=== PATIENT | male | born 1990 | race Caucasian/White ===

== ENCOUNTER 2019-11-05 10:16 | Emergency (ER) | payer OTHER, SELFPAY ==
[2019-11-05 10:21] VITALS: BMI 26.6
--- NOTE | 2019-11-05 10:22 | DI.RAD.S_ITS ---
PROCEDURE: XR CHEST 2V INDICATIONS: shortness of breath TECHNIQUE: 2 views of the chest were acquired. COMPARISON: None. FINDINGS: Surgical changes and devices: None. Lungs and pleura: Lungs are clear. No pleural effusions or pneumothorax. Mediastinum: Mediastinal contours are normal. Heart size is normal. Bones and chest wall: No suspicious bony abnormalities. Soft tissues appear unremarkable. IMPRESSION: No acute cardiopulmonary pathology. Dictated by: Matias Whipple M.D. on 11/05/2019 at 11:09 Approved by: Matias Whipple M.D. on 11/05/2019 at 11:11
[2019-11-05 10:49] LABS: Add Manual Diff / Slide Review NO; Basophils Absolute Auto 0 /uL (0-100); Basophils Percent Auto 0.6 % (0-2); Eosinophils Absolute Auto 0 /uL (0-450); Eosinophils Percent Auto 0.3 % (2-4); Hematocrit 47.3 % (41-53); Hemoglobin 16.7 g/dL (13.5-17.5); Lymphocytes Absolute Auto 1600 /uL (1100-4500); Lymphocytes Percent Auto 31.7 % (25-40); Mean Corpuscular HGB Conc 35.4 % (30-36); Mean Corpuscular Hemoglobin 30.4 PG (26-34); Monocytes Absolute Auto 500 /uL (0-900); Monocytes Percent Auto 9.3 % (3-14); Neutrophils Absolute Auto 3000 /uL (1500-7000); Neutrophils Percent Auto 58.1 % (50-75); Platelet Count 170 X10^3/uL (150-400); Red Cell Distribution Width 13.6 % (11.6-14.8); White Blood Cell Count 5.2 X10^3/uL (4.5-11.0)
[2019-11-05 11:02] LABS: Alanine Aminotransferase 24 IU/L (<50); Albumin 4.6 g/dL (3.5-5.0); Albumin Globulin Ratio 1.4 (1.0-2.8); Alkaline Phosphatase 66 U/L (38-126); Aspartate Aminotransferase 34 IU/L (17-59); Bilirubin Total 0.6 mg/dL (0.2-1.3); Blood Urea Nitrogen 17 mg/dL (9-20); Calcium 9.4 mg/dL (8.4-10.2); Carbon Dioxide 21 mmol/L (22-32); Chloride 103 mmol/L (98-107); Estimated Glomerular Filt Rate > 60.0 mL/min (>60); Globulin 3.4 g/dL (1.7-4.1); Glucose 92 mg/dL (70-100); HEMOLYSIS < 15 (0-50); Potassium 3.4 mmol/L (3.4-5.1); Sodium 139 mmol/L (137-145)
--- NOTE | 2019-11-05 11:02 | ED_ITS ---
HPI - General Adult General Chief complaint: Shortness of Breath/Dyspnea Stated complaint: difficulty breathing,face/body feeling numb Time Seen by Provider: 11/05/19 10:34 Source: patient Mode of arrival: Wheelchair Limitations: no limitations History of Present Illness HPI narrative: 29-year-old male here for evaluation of shortness of breath. Patient states that his symptoms started last . On Tuesday he started to feel better. On Tuesday was also feeling okay but then worsened today. States that it feels like there is a heaviness on his chest. No recent travel. Subjective fevers. Has not tried anything for symptoms. Has been coughing. Stated he also felt very weak today. Related Data Home Medications Medication Instructions Recorded Confirmed No Known Home Medications 11/05/19 11/05/19 Allergies Allergy/AdvReac Type Severity Reaction Status Date / Time No Known Drug Allergies Allergy Verified 11/05/19 10:20 Review of Systems Constitutional Constitutional: Reports fatigue and Denies fever(s) Cardiovascular Cardiovascular: Denies chest pain, Denies leg edema, Reports dyspnea and Reports dyspnea on exertion Respiratory Respiratory: Reports cough, Reports dyspnea and Reports dyspnea on exertion Gastrointestinal Gastrointestinal: Denies abdominal pain, Denies nausea and Denies vomiting Musculoskeletal Musculoskeletal: Denies myalgias and Denies arthralgias Integumentary/Breasts Skin/Breast: Denies rash Neurologic Neurologic: Denies behavioral changes Psychiatric Psychiatric: Denies behavioral changes Endocrine Endocrine: Reports fatigue Hematologic/Lymphatic Hematologic/Lymphatic: Denies easy bleeding and Denies easy bruising Patient History Medical History Healthy adult (Acute) Social History Smoking Status: Current some day smoker Smoking Status: Current some day smoker tobacco type: cigarettes alcohol intake frequency: a few times a month Substance Use Type: does not use Exam Initial Vital Signs Initial Vital Signs: Vital Signs Pulse Rate 55 L 11/05/19 11:29 Respiratory Rate 17 11/05/19 11:29 Blood Pressure 115/58 L 11/05/19 11:29 Pulse Oximetry 97 11/05/19 11:29 Const General: cooperative and comfortable Limitations: mental status not altered HENMT Head: normal to inspection Resp Effort & Inspection: normal respiratory effort Auscultation: clear to auscultation bilaterally Cardio Rate: regular rate Rhythm: regular rhythm GI Inspection: non-distended Palpation: soft Skin Lesions: no lesions Rashes: no rashes Neuro General: alert, awake and oriented x3 Cognition: normal cognition Extrem General: capillary refill normal and No edema Psych Appearance: grossly normal and well kempt Scores GCS Caldwell coma scale eye opening: Spontaneous Caldwell coma scale verbal response: Orientated Junie coma scale motor response: Obey commands Junie coma scale total score: 15 PERC Score Age greater than or equal to 50 years: No Heart rate greater than or equal to 100 bpm: No Room Air O2 Sat less than 95%: No Unilateral leg swelling: No Recent trauma or surgery: No Hemoptysis: No Prior PE or DVT: No Hormone Use: No Total PERC Score: 0 Course Orders Ordered: ED Orders 11/05/19 10:22 XR chest 2V Stat EKG-12 Lead Stat Measure peak expiratory flow ONCE RT Consult Eval and Treat Now 11/05/19 10:35 Complete Blood Count AUTO DIFF Stat Comprehensive Metabolic Panel Stat 11/05/19 11:00 Lactate (Lactic Acid) Stat Vital Signs Vital signs: Vital Signs - 8 hr 11/05/19 11:29 Pulse Rate 55 L Respiratory Rate 17 Blood Pressure [Left Arm] 115/58 L Pulse Oximetry 97 Medical Decision Making Lab Data Lab results reviewed: Yes I reviewed the patient's lab results. Result diagrams: 11/05/19 10:35 11/05/19 10:35 Labs: Lab Results 11/05/19 11/05/19 11/05/19 Range/Units 10:35 10:35 11:00 WBC 5.2 (4.5-11.0) X10^3/uL RBC 5.50 (4.5-5.9) X10^6/uL Hgb 16.7 (13.5-17.5) g/dL Hct 47.3 (41-53) % MCV 86.0 (80-100) fL MCH 30.4 (26-34) PG MCHC 35.4 (30-36) % RDW 13.6 (11.6-14.8) % Plt Count 170 (150-400) X10^3/uL Neut % (Auto) 58.1 (50-75) % Lymph % (Auto) 31.7 (25-40) % [place] % (Auto) 9.3 (3-14) % Eos % (Auto) 0.3 L (2-4) % Baso % (Auto) 0.6 (0-2) % Neut # (Auto) 3000 (7529-3566) /uL Lymph # (Auto) 1600 (6883-9118) /uL [place] # (Auto) 500 (0-900) /uL Eos # (Auto) 0 (0-450) /uL Baso # (Auto) 0 (0-100) /uL Sodium 139 (137-145) mmol/L Potassium 3.4 (3.4-5.1) mmol/L Chloride 103 (98-107) mmol/L Carbon Dioxide 21 L (22-32) mmol/L BUN 17 (9-20) mg/dL Creatinine 1.00 (0.66-1.25) mg/dL Estimated GFR > 60.0 (>60) mL/min BUN/Creatinine Ratio 17.0 (6-22) Glucose 92 (70-100) mg/dL Lactate 1.4 (0.7-2.1) mmol/L Calcium 9.4 (8.4-10.2) mg/dL Total Bilirubin 0.6 (0.2-1.3) mg/dL AST 34 (17-59) IU/L ALT 24 (<50) IU/L Alkaline Phosphatase 66 (38-126) U/L Total Protein 8.0 (6.3-8.2) g/dL Albumin 4.6 (3.5-5.0) g/dL Globulin 3.4 (1.7-4.1) g/dL Albumin/Globulin Ratio 1.4 (1.0-2.8) Imaging Data Chest x-ray: Radiologist's Impression: [address] [address] XRay Report Signed Patient: Vladislav Tinsley [facility]#: [id number] : 1990Acct:[id number] Age/Sex: 29 / MDate of Service: 11/05/19 Loc: ED Accession Number: [id number] Procedure: XR chest 2V Ordering Provider: Donaldo Cespedes D.O. PROCEDURE: XR CHEST 2V INDICATIONS: shortness of breath TECHNIQUE: 2 views of the chest were acquired. COMPARISON: None. FINDINGS: Surgical changes and devices: None. Lungs and pleura: Lungs are clear. No pleural effusions or pneumothorax. Mediastinum: Mediastinal contours are normal. Heart size is normal. Bones and chest wall: No suspicious bony abnormalities. Soft tissues appear unremarkable. IMPRESSION: No acute cardiopulmonary pathology. Dictated by: Matias Whipple M.D. on 11/05/2019 at 11:09 Approved by: Matias Whipple M.D. on 11/05/2019 at 11:11 ECG Data Attestation: I personally reviewed and interpreted this ECG as follows: Prior ECG tracings: not available for review Interpretation: Sinus rhythm Ventricular rate is 62 Normal axis Normal QRS Normal QTC No ST T wave changes MDM Narrative Medical decision making narrative: EKG is unremarkable, chest x-ray is unremarkable, labs are unremarkable, vital signs unremarkable, has a normal exam. Low suspicion for PE, ACS, pneumonia. Has had symptoms for 3-4 days. No fevers. Low suspicion for flu. No indication for antibiotics. Will hold on further workup. Patient was given return precautions and follow-up instructions. He expressed understanding and agreement plan. Discharge Plan Departure Patient Disposition: Home Clinical Impression: Shortness of Breath Instructions: DI for Shortness of Breath Activity Restrictions/Additional Instructions: Recommend you follow-up with your medical department. Return to the emergency department for any new or worsening symptoms Prescriptions: No Action No Known Home Medications RF: 0 Stand Alone Forms: Work Release Note
[2019-11-05 11:22] LABS: Lactate (Lactic Acid) 1.4 mmol/L (0.7-2.1)
[2019-11-05 11:29] VITALS: BP 115/58; PULSE 55; RESP 17; O2SAT 97
[2019-11-05 12:19] VITALS: BP 114/63; PULSE 64; RESP 22; O2SAT 98
== END 2019-11-05 12:21 | disposition home or self-care (01) ==
PROVIDERS: Emergency Provider Emergency Medicine
DX: R06.02 Shortness of breath (principal)
CPT/HCPCS: 36415; 71046; 80053; 83605; 85025; 93005; 99284; 99285